=== PATIENT | male | born 1935 | race Caucasian/White ===

== ENCOUNTER → 2016-10-30 | Outpatient (REF) | payer MEDICARE ==
[2016-10-30 17:34] LABS: BLOOD UREA NITROGEN 14 MG/DL (7-18); GLOMERULAR FILTRATION RATE > 60.0 (>35)
== END ==
LOC: M LABDRAWC 16:15
PROVIDERS: ATTEND Dermatology
DX: C43.9 Malignant melanoma of skin, unspecified (principal)

== ENCOUNTER → 2017-06-08 | Outpatient (REF) | payer OTHER ==
[2017-06-08 16:26] LABS: MEAN CORPUSCULAR HGB CONC 32.9 g/dl (32.0-36.5); MEAN CORPUSCULAR VOLUME 94.2 fl (80.0-96.0); RED CELL DISTRIBUTION WIDTH 13.2 % (11.5-14.5); WHITE BLOOD COUNT 9.3 K/mm3 (4.0-10.0)
[2017-06-08 17:47] LABS: ALBUMIN 3.7 GM/DL (3.2-5.2); ALBUMIN/GLOBULIN RATIO 1.09 (1.00-1.93); ALKALINE PHOSPHATASE 95 U/L (45-117); ALT/SGPT 22 U/L (12-78); ANION GAP 9 MEQ/L (8-16); AST/SGOT 14 U/L (15-37); BILIRUBIN,TOTAL 0.5 MG/DL (0.2-1.0); BLOOD UREA NITROGEN 20 MG/DL (7-18); CALCIUM LEVEL 8.8 MG/DL (8.8-10.2); CARBON DIOXIDE LEVEL 28 MEQ/L (21-32); CHLORIDE LEVEL 104 MEQ/L (98-107); CREATININE FOR GFR 0.92 MG/DL (0.70-1.30); FREE T4 0.76 NG/DL (0.76-1.46); GLOMERULAR FILTRATION RATE > 60.0 (>35); GLUCOSE, FASTING 160 MG/DL (83-110); POTASSIUM SERUM 4.3 MEQ/L (3.5-5.1); SODIUM LEVEL 141 MEQ/L (136-145); TOTAL PROTEIN 7.1 GM/DL (6.4-8.2)
== END ==
LOC: M SFHCCLAY 13:28
PROVIDERS: ATTEND Family Medicine
DX: I25.10 Atherosclerotic heart disease of native coronary artery without angina pectoris (principal); E03.9 Hypothyroidism, unspecified
CPT/HCPCS: 80053; 84439; 84443; 85027; G0463

== ENCOUNTER 2020-12-26 01:06 | Inpatient (IN) | payer MEDICARE, OTHER ==
[~2020-12-26] VITALS: Ht 160 cm; Wt 90.3 kg
[2020-12-26] MEDS ORDERED: ONETTES6 (01:24)
[2020-12-26] MEDS ORDERED: METO50TA7 PO (01:24)
[2020-12-26] MEDS ORDERED: GLYB5TAB6 PO (01:24)
[2020-12-26] MEDS ORDERED: LANC-66 (01:24)
[2020-12-26] MEDS ORDERED: METOPROLOL 5 MG/5 ML VIAL IV ONE (01:25)
[2020-12-26] MEDS ORDERED: ASPI-1 PO (01:25)
[2020-12-26 01:30] LABS: BASO # 0.1 10^3/uL (0.0-0.2); BASO % 0.6 % (0.0-1.0); EOS # 0.2 10^3/uL (0.0-0.5); EOS % 1.9 % (0.0-3.0); HEMATOCRIT 44.6 % (42.0-52.0); HEMOGLOBIN 14.1 g/dl (13.5-17.5); LYMPH # 3.2 10^3/uL (1.5-5.0); LYMPH % 29.7 % (24.0-44.0); MEAN CORPUSCULAR HEMOGLOBIN 29.9 pg (27.0-33.0); MEAN CORPUSCULAR HGB CONC 31.6 g/dl (32.0-36.5); MEAN CORPUSCULAR VOLUME 94.5 fl (80.0-96.0); MONO % 9.4 % (2.0-8.0); NEUTROPHILS # 6.3 10^3/uL (1.5-8.5); NEUTROPHILS % 57.9 % (36.0-66.0); PLATELET COUNT, AUTOMATED 214 10^3/uL (150-450); RED BLOOD COUNT 4.72 10^6/uL (4.30-6.10); WHITE BLOOD COUNT 10.9 10^3/uL (4.0-10.0)
[2020-12-26] MEDS ORDERED: METOPROLOL 5 MG/5 ML VIAL IV STA ×3 (01:35→01:54)
[2020-12-26] MEDS ORDERED: METOPROLOL SUCC *XL* 25MG TAB (TopROL *XL*) PO ONE (01:40)
--- NOTE | 2020-12-26 01:49 | REPVR ---
PROCEDURE INFORMATION: Exam: XR Chest Exam date and time: 12/26/2020 1:29 AM Age: 85 years old Clinical indication: Other: Chest pain TECHNIQUE: Imaging protocol: XR of the chest Views: 1 view. COMPARISON: CR Chest, 1 view 02/16/2014 6:47 AM FINDINGS: Lungs: Degree of lung inflation is normal. No evidence of pulmonary edema. No focal consolidation or parenchymal lung mass. Pleural spaces: No pleural effusion or pneumothorax. Heart/Mediastinum: Cardiac silhouette appears normal. No adenopathy or hilar mass. Bones/joints: Osseous structures show no concerning abnormality. Osseous changes of chronic right rotator cuff tear are present. IMPRESSION: No acute or focal cardiopulmonary process. Electronically signed by: Didier Chu On 12/26/2020 01:48:58 AM
[2020-12-26 02:01] LABS: ALBUMIN 3.4 GM/DL (3.2-5.2); ALT/SGPT 17 U/L (12-78); BILIRUBIN,DIRECT < 0.1 MG/DL (0.0-0.2); BILIRUBIN,TOTAL 0.3 MG/DL (0.2-1.0); BLOOD UREA NITROGEN 20 MG/DL (7-18); CALCIUM LEVEL 8.2 MG/DL (8.8-10.2); CARBON DIOXIDE LEVEL 26 MEQ/L (21-32); CHLORIDE LEVEL 108 MEQ/L (98-107); CK-MB VALUE MASS 1.7 NG/ML (<3.6); CPK CREATINE PHOSPHOKINASE 67 U/L (39-308); CREATININE FOR GFR 1.11 MG/DL (0.70-1.30); FREE T4 0.84 NG/DL (0.76-1.46); GLOMERULAR FILTRATION RATE > 60.0 (>35); GLUCOSE, FASTING 118 MG/DL (70-100); INR 1.04; LIPASE 65 U/L (73-393); MB/CK RELATIVE INDEX 2.54 (< OR =4); NT-PRO BNP 1301 PG/ML (<450); POTASSIUM SERUM 3.9 MEQ/L (3.5-5.1); PROTHROMBIN TIME 13.8 SECONDS (12.5-14.3); SODIUM LEVEL 144 MEQ/L (136-145); TOTAL PROTEIN 6.5 GM/DL (6.4-8.2); TROPONIN I 0.04 NG/ML (< 0.10)
[2020-12-26 02:02] LABS: PARTIAL THROMBOPLASTIN TIME 30.6 SECONDS (24.2-38.5)
[2020-12-26 04:53] LABS: MB/CK RELATIVE INDEX 3.03 (< OR =4); TROPONIN I 0.07 NG/ML (< 0.10)
[2020-12-26] MEDS ORDERED: MORPHINE 2 MG/ML 1ML VIAL (J2270) IV PRN (06:00)
[2020-12-26] MEDS ORDERED: NITROGLYCERIN 0.3 MG SUBL TAB SL PRN (06:00)
[2020-12-26] MEDS ORDERED: ACETAMINOPHEN TAB 650MG DOSE (2X325MG) PO PRN (06:00)
--- NOTE | 2020-12-26 06:18 | HPEPDOC ---
General Date of Admission 12/26/20 Date of Service: Dec 26, 2020 Attending Physician: JARRELL BOCANEGRA MD Chief Complaint The patient is a 85-year-old male admitted with a reason for visit of Rapid Heart Rate. History of Present Illness HPI: This is a 85 y/o elderly gentleman with PMHx significant for Cardiac stent x4, HTN, hypercholesterolemia, DM2, who presents to [facility] ER with cc or epigastric discomfort and racing heartbeat. Pt is a poor historian. He states that he has not had his metoprolol (50mg PO BID) filled and missed 2 days of the medication. He states that he could feel his heart beat out of his chest and very fast. At the same time he experiences an gnawing epigastric discomfort which he states is not painful per say but "it's just there." He denies any radiation of his epigastric pain; also denies any CP, dizziness, syncope, presyncope, headaches, vision changes, fever, chills, n/v/d. Also denies any allievating or exacerbating factors. When EMS arrived at his home, his HR was in the 140s-150s, he was given Metoprolol for rate control and a 1L fluid bolus. In the ER, his initial trop was elevated and 2nd set increased, EKG did not show any acute ST elevations. 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 Stopped smoking many years ago. Rarely drinks alcohol PHYSICAL EXAM: VITAL SIGNS: See below GENERAL: elderly gentleman, resting comfortably in bed, NAD HEENT: Head is normocephalic, atraumatic. Pupils equal, round and reactive to light and accommodation. Extraocular muscles are intact. Mucosa is moist. Poor dentition of the lower teeth. Upper partial plate is not in today. In general, he has benign appearing mouth and throat. NECK: He has no thyromegaly or cervical adenopathy. HEART: Regular rate and rhythm on tele. No JVD. trace pitting edema in bilateral lower ext CHEST: Clear to auscultation in all costa. ABDOMEN: obese, hyperactive bowel, No tenderness, masses EXTREMITIES: Good distal pulses. Edema noted in the left leg. There is varicosities also of the left leg. No clubbing or cyanosis noted. IMAGING: XR chest : IMPRESSION: No acute or focal cardiopulmonary process. ASSESSEMENT AND PLAN: #Epigastric pain with radiation to substernal region #Troponemia -R/o ACS - will trend trop and EKG - will order lipid panel, TSH, ASCVD calculation - will order for a1c - nitro Sl prn + morphine Prn - will order for Urine drug screen - will order ECHO - will order CTA chest - am f/u -ASA loaded will start 81mg ASA+ metoprolol +lisinopril +atorvastain 80mg #Hypothyroidism - TSH initially very high - will order for repeat - am team to [place] for priomary vs 2ndary or tertiary hypothyroidism depending on repeat serum TSH and start meds #COPD - not in decompensation - c/w home meds #HTN - c/w metoprolol home dose #Hypercholesteremia - c/w home meds - will order lipid panel DVT ppx: Heparin Code status: Full disposition: Admit PCU tele. Trop trends Med rec needed to be done. Pharmacy has not reviewed his home meds upon morning signout. Home Medications Scheduled Aspirin (Aspirin) 325 Mg Tablet, 1 TAB PO DAILY for fever, (Reported) Metoprolol Tartrate (Metoprolol Tartrate) 50 Mg Tablet, 50 MG PO BID, (Reported) Miscellaneous Medications Blood Sugar Diagnostic ([place] Ultra Blue Test Strp) 1 Each Strip, (Reported) Glyburide (Glyburide) 5 Mg Tablet, 5 MG PO, (Reported) Allergies Coded Allergies: Penicillins (Verified Allergy, Unknown, HIVES, 12/26/20) A-FIB/CHADSVASC A-FIB History Current/History of A-Fib/PAF?: No Current PO Anticoag Therapy: No Vital Signs Vital Signs Date Time Temp Pulse Resp B/P (MAP) Pulse Ox O2 Delivery O2 Flow Rate FiO2 12/26/20 05:45 75 16 142/68 (92) 98 Room Air 12/26/20 01:16 97.7 Laboratory Data Labs 24H Laboratory Tests 2 12/26/20 01:14: Immature Granulocyte % (Auto) 0.5, Neutrophils (%) (Auto) 57.9, Lymphocytes (%) (Auto) 29.7, Monocytes (%) (Auto) 9.4H, Eosinophils (%) (Auto) 1.9, Basophils (%) (Auto) 0.6, Neutrophils # (Auto) 6.3, Lymphocytes # (Auto) 3.2, Monocytes # (Auto) 1.0H, Eosinophils # (Auto) 0.2, Basophils # (Auto) 0.1, Nucleated Red Blood Cells % (auto) 0.0, Prothrombin Time 13.8, Prothromb Time International Ratio 1.04, Activated Partial Thromboplast Time 30.6, Anion Gap 10, Glomerular Filtration Rate > 60.0, Calcium Level 8.2L, Total Bilirubin 0.3, Direct Bilirubin < 0.1, Aspartate Amino Transf (AST/SGOT) 9, Alanine Aminotransferase (ALT/SGPT) 17, Alkaline Phosphatase 96, Total Creatine Kinase 67, Creatine Kinase MB 1.7, Creatine Kinase MB Relative Index 2.54, Troponin I 0.04, WD-Nij-W-Type Natriuretic Peptide 1301H, Total Protein 6.5, Albumin 3.4, Albumin/Globulin Ratio 1.1, Lipase 65L, Thyroid Stimulating Hormone (TSH) 23.100H, Free Thyroxine 0.84 12/26/20 04:08: Total Creatine Kinase 66, Creatine Kinase MB 2.0, Creatine Kinase MB Relative Index 3.03, Troponin I 0.07# 12/26/20 05:42: CBC/BMP Laboratory Tests 12/26/20 01:14 Plan / VTE VTE Prophylaxis Ordered?: Yes GME ATTESTATION GME ATTESTATION My faculty preceptor for this patient encounter was physically present during the encounter and was fully available. All aspects of the patient interview, examination, medical decision making process, and medical care plan development were reviewed and approved by the faculty preceptor. The faculty preceptor is aware and concurs with the plan as stated in the body of this note and will attest to such by his/her cosignature. Thang Ugarte DO Dec 26, 2020 06:18
[2020-12-26 06:33] LABS: RSV AMPLIFICATION NEGATIVE (NEGATIVE)
--- NOTE | 2020-12-26 06:41 | ECGEPIP ---
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
[2020-12-26] MEDS ORDERED: ISOVUE-370 76% 100ML VIAL As Ordered ONE (06:55)
--- NOTE | 2020-12-26 08:21 | REPVR ---
PROCEDURE INFORMATION: Exam: CTA Chest With Contrast Exam date and time: 12/26/2020 7:42 AM Age: 85 years old Clinical indication: Other: Sinus tachy TECHNIQUE: Imaging protocol: Computed tomographic angiography of the chest with contrast. 3D rendering (Not supervised by radiologist): MIP and/or 3D reconstructed images were created by the technologist. Radiation optimization: All CT scans at this facility use at least one of these dose optimization techniques: automated exposure control; mA and/or kV adjustment per patient size (includes targeted exams where dose is matched to clinical indication); or iterative reconstruction. Contrast material: ISOVUE 370; Contrast volume: 75 ml; Contrast route: INTRAVENOUS (IV); COMPARISON: CR PORTABLE CHEST X-RAY 12/26/2020 1:27 AM FINDINGS: Pulmonary arteries: No pulmonary artery embolism identified. Aorta: Moderate aortic arch, branch, and descending thoracic aortic atherosclerotic calcification without ectasia. Moderate aortic valvular calcification is present. Thyroid: The bilateral thyroid lobes are unremarkable. Lungs: Unremarkable. No consolidation. No masses. Pleural spaces: Unremarkable. No pneumothorax. No pleural effusion. Heart: LAD, LCx and RCA calcified coronary atherosclerosis. Lymph nodes: Inferior right pulmonary hilar lymph node, 10.4 mm short axis. Right subcarinal/as ago esophageal recess lymph node, 9.8 mm short axis. Pancreas: Moderate pancreatic atrophy. Bones/joints: Healed lateral left 7th rib fracture. 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 Severe left, mild right glenohumeral joint primary osteoarthritis. Thoracic spine vertebral body marginal osteophytes are noted at multiple levels. Soft tissues: Unremarkable. IMPRESSION: 1. No pulmonary artery embolism identified. 2. No thoracic aortic aneurysm or dissection identified. 3. Coronary atherosclerosis. Electronically signed by: Faisal Kessler On 12/26/2020 08:21:24 AM
[2020-12-26] MEDS ORDERED: ASPIRIN 81 MG CHEW TABLET PO SCH (09:00)
[2020-12-26] MEDS ORDERED: METOPROLOL TART 25 MG TABLET PO SCH (09:00)
[2020-12-26 11:19] VITALS: BP 116/55
[2020-12-26 11:33] LABS: CK-MB VALUE MASS 2.6 NG/ML (<3.6); MB/CK RELATIVE INDEX 3.25 (< OR =4); TROPONIN I 0.08 NG/ML (< 0.10)
[2020-12-26 11:37] LABS: CHOLESTEROL RISK RATIO 5.957 (<5); THYROID STIMULATING HORMONE 8.36 uIU/ML (0.358-3.740)
[2020-12-26 11:45] VITALS: BP 150/75
[2020-12-26 11:54] LABS: HEMOGLOBIN A1c 6.2 %
[2020-12-26] MEDS ORDERED: GLUCAGON INJ 1MG VIAL SC PRN (12:10)
[2020-12-26] MEDS ORDERED: DEXTROSE 50% 50 ML SYRINGE IV PRN (12:10)
[2020-12-26] MEDS ORDERED: SLF 3 ML SYR IV PRN (12:10)
[2020-12-26] MEDS ORDERED: GLUCOSE 4GM CHEW TABLET PO PRN (12:10)
[2020-12-26] MEDS: ASPIRIN 325 MG TAB PO SCH (12:18)
[2020-12-26] MEDS: ATORVASTATIN 20 MG TAB PO SCH (12:18)
[2020-12-26] MEDS: LISINOPRIL *2.5 MG* TAB PO SCH (12:19)
[2020-12-26] MEDS: METOPROLOL TART 50 MG TAB PO SCH ×2 (12:19→20:52)
[2020-12-26] MEDS: PANTOPRAZOLE 40MG TAB (PROTONIX) PO SCH (12:20)
[2020-12-26] MEDS: HumaLOG INSULIN (NovoLOG) PER UNIT SC SCH ×2 (12:59→17:30)
[2020-12-26 14:20] VITALS: BP 110/48
[2020-12-26] MEDS: HEPARIN SOD (PORCINE) 5000UNITS/ML 1ML VIAL/SYRINGE SC SCH ×2 (14:57→21:12)
[2020-12-26] MEDS: SLF 3 ML SYR IV SCH ×2 (14:58→21:13)
[2020-12-26 15:49] LABS: FREE T4 0.87 NG/DL (0.76-1.46)
[2020-12-26 15:52] VITALS: BP 116/56
--- NOTE | 2020-12-26 18:51 | ECGEPIP ---
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
--- NOTE | 2020-12-26 19:18 | ECGEPIP ---
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
[2020-12-26 20:08] VITALS: BP 118/57
[2020-12-26] MEDS ORDERED: HumaLOG INSULIN (NovoLOG) PER UNIT SC SCH (21:00)
[2020-12-26 21:19] LABS: CK-MB VALUE MASS 2.2 NG/ML (<3.6); MB/CK RELATIVE INDEX 2.47 (< OR =4); TROPONIN I 0.06 NG/ML (< 0.10)
[2020-12-27] VITALS: BP 124/60
[2020-12-27] MEDS: HEPARIN SOD (PORCINE) 5000UNITS/ML 1ML VIAL/SYRINGE SC SCH (05:12)
[2020-12-27] MEDS: SLF 3 ML SYR IV SCH (05:12)
[2020-12-27 05:33] LABS: HEMATOCRIT 43.1 % (42.0-52.0); HEMOGLOBIN 13.6 g/dl (13.5-17.5); MEAN CORPUSCULAR HEMOGLOBIN 29.6 pg (27.0-33.0); MEAN CORPUSCULAR HGB CONC 31.6 g/dl (32.0-36.5); MEAN CORPUSCULAR VOLUME 93.7 fl (80.0-96.0); PLATELET COUNT, AUTOMATED 183 10^3/uL (150-450); WHITE BLOOD COUNT 7.8 10^3/uL (4.0-10.0)
[2020-12-27 05:54] LABS: BLOOD UREA NITROGEN 15 MG/DL (7-18); CALCIUM LEVEL 8.4 MG/DL (8.8-10.2); CARBON DIOXIDE LEVEL 27 MEQ/L (21-32); CHLORIDE LEVEL 110 MEQ/L (98-107); CREATININE FOR GFR 0.85 MG/DL (0.70-1.30); GLOMERULAR FILTRATION RATE > 60.0 (>35); GLUCOSE, FASTING 108 MG/DL (70-100); POTASSIUM SERUM 4.1 MEQ/L (3.5-5.1); SODIUM LEVEL 143 MEQ/L (136-145)
[2020-12-27] MEDS: HumaLOG INSULIN (NovoLOG) PER UNIT SC SCH (07:30)
[2020-12-27 08:00] VITALS: BP 122/75
[2020-12-27] MEDS: ASPIRIN 325 MG TAB PO SCH (08:11)
[2020-12-27] MEDS: PANTOPRAZOLE 40MG TAB (PROTONIX) PO SCH (08:11)
[2020-12-27] MEDS: LISINOPRIL *2.5 MG* TAB PO SCH (08:11)
[2020-12-27 08:12] VITALS: BP 122/75
[2020-12-27] MEDS: ATORVASTATIN 20 MG TAB PO SCH (08:12)
[2020-12-27] MEDS: METOPROLOL TART 50 MG TAB PO SCH (08:12)
[2020-12-27] MEDS ORDERED: FLUBLOK(EGG FREE)(QUAD)INFLUENZA VACC 0.5ML SYRINGE 18YRS & OLDER IM ONE (09:00)
[2020-12-27] MEDS ORDERED: METO50TA7 PO (11:13)
[2020-12-27 11:40] LABS: THYROGLOBULIN ANTIBODY < 15.0 U/ML (<60.0); THYROID PEROXIDASE ANTIBODY < 28.0 U/ML (<60.0)
--- NOTE | 2020-12-27 14:25 | ECHO ---
DATE OF PROCEDURE: 12/26/2020 Age: 86 Gender: Male Height: 155 cm Weight: 91 kg REFERRING PHYSICIAN: Dr. Ugarte. INDICATION: Chest pain, elevated troponin. MEASUREMENTS: IVS 1.0 cm LV 5.4 cm LV systolic 4.0 cm LVPW 1.0 cm LA 4.2 cm Aorta 3.2 cm RV 2.6 cm IVC 1.9 cm Mitral E wave velocity 88 Mitral A wave 55 E prime septal 3.7 E prime lateral 9.3 FINDINGS: This study is of acceptable technical quality considering patients body habitus. Underlying sinus rhythm with wide QRS complex. Left ventricle is normal size. I do not appreciate any distinct wall motion abnormalities based on limited views. Estimated EF around 60%. Right ventricle also appears normal size and systolic function. Both atria appear dilated. Aortic valve is sclerotic. It was poorly visualized and I cannot comment well on its structure. Mitral valve also exhibits degenerative abnormalities with mitral annular calcifications. Tricuspid valve appears normal. Pulmonic valve was not well seen. No pericardial effusion, but small amount of pericardial fat pad is noted. Inferior vena cava is on upper limits of normal size, but does have some collapse with inspiration. Aortic root is normal. Aortic arch and abdominal aorta were not well seen. Doppler interrogation reveals no aortic insufficiency and mild stenosis with mean gradient 14 mmHg. Mitral and tricuspid valve appear functionally competent. Mitral inflow pattern and tissue Doppler imaging of the mitral annulus reveals grade 2 diastolic dysfunction. CONCLUSIONS: 1. Study is of fair technical quality. Underlying sinus rhythm with wide QRS complex. 2. Normal LV size with grossly preserved LV systolic function based on limited views. Likely grade 2 diastolic dysfunction. 3. Aortic sclerosis with no insufficiency and mild stenosis (mean gradient 14 mmHg). 4. No additional significant valvular disease. 5. At least borderline elevated central venous pressure. 6. Unable to estimate pulmonary artery pressure. 7. Small pericardial fat pad. MTDD
--- NOTE | 2020-12-27 19:08 | DS.PDOC ---
Discharge Summary General Date of Admission Dec 26, 2020 at 10:15 Date of Discharge 12/27/2020 Discharge Summary PRIMARY CARE PHYSICIAN: [facility] ATTENDING AT TIME OF DISCHARGE: Dr. Cj Burns, DISCHARGE DIAGNOS(E)S: Tachycardia Mildly elevated troponins without EKG changes Elevated TSH without prior diagnosis of hypothyroidism COPD Hypertension Hypercholesterolemia Coronary artery disease with history of cardiac stent x4 Diabetes mellitus type 2 HPI & HOSPITAL COURSE: Patient presented to the hospital with epigastric pain that radiated to the substernal region. Apparently he had run out of his home medications, including metoprolol because his old primary care provider was no longer working at the clinic, and he is still not scheduled to see a new provider for a few more weeks. Troponins were initially mildly elevated, but trended down. No acute changes were found on EKG. He was initially found to have a TSH of 23, but then approximately 9 hours later was rechecked and found to be 8.3, and he has no pas t history of hypothyroidism. Thyroid peroxidase antibody and thyroglobulin antibodies were both ordered and found to be negative. An echocardiogram was performed, however the dictation is still not available at this time. Essentially he was started back on his home dose of metoprolol tartrate 50 mg twice a day, his rate dropped back to normal and he became asymptomatic and. He was kept in PCU on telemetry for 24 hours without any subsequent events. It appears that he is stable for discharge at this time, and sent home on his usual home medications. Refills for his metoprolol were sent in. PHYSICAL EXAMINATION ON DISCHARGE: GENERAL: Awake, alert, oriented 3. He is in no acute distress. CARDIOVASCULAR EXAMINATION: Regular rate and rhythm, with no rubs, gallops, or murmur. RESPIRATORY EXAMINATION: Clear to auscultation bilaterally with no wheezes, rales, or rhonchi. ABDOMINAL EXAMINATION: Soft, nontender, nondistended. Bowel sounds present. EXTREMITIES: No clubbing or edema noted. 2+ pulses in the radial bilaterally. DISPOSITION: Home DISCHARGE INSTRUCTIONS: Follow-up with new primary care provider within the next 1-2 weeks. Activity as tolerated. Recommended 2 g sodium restriction diet. If symptoms return, or if you experience worsening of your symptoms, please call your doctor or return to the emergency department. ITEMS THAT NEED OUTPATIENT FOLLOWUP: Establish with new PCP Recommend rechecking thyroid studies in a few weeks Follow-up on results of echocardiogram Vital Signs/I&Os Vital Signs Date Time Temp Pulse Resp B/P (MAP) Pulse Ox O2 Delivery O2 Flow Rate FiO2 12/27/20 08:12 122/75 12/27/20 08:00 98.5 62 20 96 Room Air I&O- Last 24 Hours up to 6 AM 12/27/20 06:00 Intake Total 540 ml Output Total 325 ml Balance 215 ml Laboratory Data Labs 24H Laboratory Tests 2 12/26/20 20:27: Total Creatine Kinase 89, Creatine Kinase MB 2.2, Creatine Kinase MB Relative Index 2.47, Troponin I 0.06#, Anti-Thyroglobulin Antibody < 15.0, Thyroid Peroxidase Antibodies < 28.0 12/26/20 20:48: Bedside Glucose (Misc Panel) 104 12/27/20 05:18: Nucleated Red Blood Cells % (auto) 0.0, Anion Gap 6L, Glomerular Filtration Rate > 60.0, Lactic Acid Level 1.1, Calcium Level 8.4L, Procalcitonin <0.05 12/27/20 08:10: Bedside Glucose (Misc Panel) 107 12/27/20 11:36: Lab Scanned Report Miscellaneous Lab CBC/BMP Laboratory Tests 12/27/20 05:18 FSBS Laboratory Tests Test 12/26/20 20:48 12/27/20 08:10 Range/Units Bedside Glucose (Misc Panel) 104 107 83-110 MG/DL Discharge Medications Scheduled Aspirin (Aspirin) 325 Mg Tablet, 325 MG PO DAILY, (Reported) Glyburide (Glyburide) 5 Mg Tablet, 5 MG PO DAILY, (Reported) Metoprolol Tartrate (Metoprolol Tartrate) 50 Mg Tablet, 50 MG PO BID Allergies Coded Allergies: Penicillins (Verified Allergy, Unknown, HIVES, 12/26/20) CJ BURNS DO Dec 27, 2020 19:08
== END 2020-12-27 11:47 | disposition home health service (06) | DRG 392 ==
LOC: M ED 01:06 → M ED INP 10:15 → ENRESERV 10:26 → M PCU 11:37
PROVIDERS: ADMIT Neuromusculoskeletal Medicine & OMM; ATTEND Neuromusculoskeletal Medicine & OMM
DX: R10.13 Epigastric pain (principal); R00.0 Tachycardia, unspecified; J44.9 Chronic obstructive pulmonary disease, unspecified; I10 Essential (primary) hypertension; E78.00 Pure hypercholesterolemia, unspecified; I25.10 Atherosclerotic heart disease of native coronary artery without angina pectoris; Z95.2 Presence of prosthetic heart valve; E11.9 Type 2 diabetes mellitus without complications; R94.6 Abnormal results of thyroid function studies; R74.8 Abnormal levels of other serum enzymes; Z79.82 Long term (current) use of aspirin; Z88.0 Allergy status to penicillin; M19.90 Unspecified osteoarthritis, unspecified site; G43.909 Migraine, unspecified, not intractable, without status migrainosus; Z85.828 Personal history of other malignant neoplasm of skin; Z87.891 Personal history of nicotine dependence; Z88.8 Allergy status to other drugs, medicaments and biological substances

== ENCOUNTER 2021-10-09 00:13 | Inpatient (IN) | payer MEDICARE ==
[~2021-10-09] VITALS: Ht 162.6 cm; Wt 86.9 kg
[2021-10-09] VITALS (9 sets, daily range): BP systolic 113–134; BP diastolic 62–89; O2SAT 91–95
[~2021-10-09 00:13] MED LIST: ASPI-1 PO; GLYB5TAB6 PO; LANC-66; METO50TA7 PO; ONETTES6
[2021-10-09] MEDS ORDERED: ASPI81TA26 PO (00:40)
[2021-10-09] MEDS ORDERED: AMIO200T49 PO (00:40)
[2021-10-09] MEDS ORDERED: SEMA3TAB PO (00:40)
[2021-10-09 00:57] LABS: BASO # 0.1 10^3/uL (0.0-0.2); BASO % 0.7 % (0.0-1.0); EOS # 0.2 10^3/uL (0.0-0.5); EOS % 1.3 % (0.0-3.0); HEMATOCRIT 43.7 % (42.0-52.0); HEMOGLOBIN 13.7 g/dl (13.5-17.5); LYMPH # 2.4 10^3/uL (1.5-5.0); MEAN CORPUSCULAR HEMOGLOBIN 29.6 pg (27.0-33.0); MEAN CORPUSCULAR HGB CONC 31.4 g/dl (32.0-36.5); MEAN CORPUSCULAR VOLUME 94.4 fl (80.0-96.0); MONO % 6.8 % (2.0-8.0); NEUTROPHILS # 10.3 10^3/uL (1.5-8.5); NEUTROPHILS % 73.5 % (36.0-66.0); PLATELET COUNT, AUTOMATED 264 10^3/uL (150-450); RED BLOOD COUNT 4.63 10^6/uL (4.30-6.10)
[2021-10-09] MEDS: METOPROLOL 5 MG/5 ML VIAL IV SCH ×9 (01:09→02:14)
[2021-10-09 01:26] LABS: CK-MB VALUE MASS 1.5 NG/ML (<3.6); MB/CK RELATIVE INDEX 3.12 (< OR =4)
[2021-10-09 01:48] LABS: BLOOD UREA NITROGEN 24 MG/DL (7-18); CALCIUM LEVEL 8.9 MG/DL (8.8-10.2); CARBON DIOXIDE LEVEL 26 MEQ/L (21-32); CHLORIDE LEVEL 108 MEQ/L (98-107); CREATININE FOR GFR 1.13 MG/DL (0.70-1.30); FREE T4 0.93 NG/DL (0.76-1.46); GLOMERULAR FILTRATION RATE > 60.0 (>35); GLUCOSE, FASTING 192 MG/DL (70-100); MAGNESIUM LEVEL 2.2 MG/DL (1.8-2.4); NT-PRO BNP 3765 PG/ML (<450); SODIUM LEVEL 140 MEQ/L (136-145)
[2021-10-09 02:17] LABS: CK-MB VALUE MASS 1.6 NG/ML (<3.6); MB/CK RELATIVE INDEX 3.56 (< OR =4)
[2021-10-09] MEDS ORDERED: guaiFENesin ER 600 MG TAB PO PRN (03:25)
[2021-10-09] MEDS ORDERED: LEVALBUTEROL 1.25 MG/0.5 ML CONCENTRATE NEB NEB PRN (03:25)
[2021-10-09] MEDS ORDERED: METO50TA7 PO (03:34)
[2021-10-09] MEDS ORDERED: HOME MED LIST COMPLETE! XX SCH (03:50)
[2021-10-09] MEDS ORDERED: GLUCOSE 4GM CHEW TABLET PO PRN (04:00)
[2021-10-09] MEDS ORDERED: DEXTROSE 50% 50 ML SYRINGE IV PRN (04:00)
[2021-10-09] MEDS ORDERED: GLUCAGON INJ 1MG VIAL SC PRN (04:00)
[2021-10-09] MEDS ORDERED: LEVALBUTEROL 1.25 MG/0.5 ML CONCENTRATE NEB INH PRN (04:45)
[2021-10-09] MEDS ORDERED: ENOXAPARIN 100MG/1ML SYRINGE (J1650 PER 10MG) SC ONE (05:00)
[2021-10-09] MEDS ORDERED: FUROSEMIDE 20MG/2ML VIAL (J1940) IV ONE (05:00)
[2021-10-09] MEDS: dexameTHASONE 20MG/5ML VIAL (J1100 PER 1MG) IV SCH ×2 (05:44→08:59)
[2021-10-09 06:08] LABS: ABG BASE EXCESS -4.7 (-2.0-2.0); ABG HCO3 21.4 MEQ/L (22.0-26.0); ABG O2 SATURATION 90.7 % (95.0-99.0); ABG PARTIAL PRESSURE CO2 42.9 mmHg (35.0-45.0); ABG PARTIAL PRESSURE O2 62.9 mmHg (75.0-100.0); ABG STANDARD HCO3 20.5 MEQ/L (22.0-26.0); ABG TOTAL CO2 22.7 MEQ/L (23.0-31.0); ABG pH (ARTERIAL) 7.315 UNITS (7.350-7.450)
[2021-10-09 07:08] LABS: APPEARANCE, URINE CLEAR (CLEAR); BACTERIA, URINE AUTO NEGATIVE (NEGATIVE); BILIRUBIN, URINE AUTO NEGATIVE (NEGATIVE); BLOOD, URINE BLOOD NEGATIVE (NEGATIVE); COLOR, URINE YELLOW (YELLOW); GLUCOSE, URINE (UA) AUTO NEGATIVE (NEGATIVE); KETONE, URINE AUTO NEGATIVE (NEGATIVE); LEUKOCYTE ESTERASE, URINE AUTO NEGATIVE (NEGATIVE); MUCUS, URINE SMALL (NEGATIVE); NITRITE, URINE AUTO NEGATIVE (NEGATIVE); PROTEIN, URINE AUTO NEGATIVE (NEGATIVE); RBC, URINE AUTO 1 /HPF (0-3); SPECIFIC GRAVITY URINE AUTO 1.011 (1.002-1.035); SQUAMOUS EPITHELIAL CELL UR AU 0 /HPF (0-6); UROBILINOGEN, URINE AUTO 0.2 mg/dL (0.0-2.0); WBC, URINE AUTO 0 /HPF (0-3)
[2021-10-09] MEDS: IPRATROPIUM 0.02% SOLN 0.5MG 2.5ML NEB INH SCH ×3 (07:31→19:40)
[2021-10-09] MEDS: LEVALBUTEROL 1.25 MG/0.5 ML CONCENTRATE NEB NEB SCH ×3 (07:31→19:40)
[2021-10-09] MEDS ORDERED: REMDESIVIR 200 MG in NS 250 ML IV ONE (08:00)
[2021-10-09 08:32] LABS: VENOUS BASE EXCESS -3.9 (-2.0-2.0); VENOUS HCO3 23.8 MEQ/L (23.0-27.0); VENOUS PARTIAL PRESSURE CO2 54.4 mmHg (38.0-50.0); VENOUS PARTIAL PRESSURE O2 49.1 mmHg (30.0-50.0); VENOUS PH 7.259 UNITS (7.330-7.430); VENOUS STANDARD HCO3 20.8 MEQ/L; VENOUS TOTAL CO2 25.5 MEQ/L (24.0-28.0)
[2021-10-09 08:41] LABS: BASO # 0.1 10^3/uL (0.0-0.2); BASO % 0.6 % (0.0-1.0); EOS % 0.2 % (0.0-3.0); HEMATOCRIT 44.4 % (42.0-52.0); LYMPH # 0.8 10^3/uL (1.5-5.0); LYMPH % 6.4 % (24.0-44.0); MEAN CORPUSCULAR HEMOGLOBIN 28.6 pg (27.0-33.0); MEAN CORPUSCULAR HGB CONC 29.3 g/dl (32.0-36.5); MEAN CORPUSCULAR VOLUME 97.8 fl (80.0-96.0); MONO # 0.3 10^3/uL (0.0-0.8); MONO % 2.2 % (2.0-8.0); NEUTROPHILS # 11.1 10^3/uL (1.5-8.5); NEUTROPHILS % 89.8 % (36.0-66.0); PLATELET COUNT, AUTOMATED 195 10^3/uL (150-450); RED BLOOD COUNT 4.54 10^6/uL (4.30-6.10); WHITE BLOOD COUNT 12.4 10^3/uL (4.0-10.0)
[2021-10-09 08:53] LABS: INR 1.24
[2021-10-09 08:54] LABS: PARTIAL THROMBOPLASTIN TIME 42.3 SECONDS (25.9-37.0)
[2021-10-09 08:56] LABS: D-DIMER QUANT 2055.51 ng/ml (<500)
[2021-10-09] MEDS: HumaLOG INSULIN (NovoLOG) PER UNIT SC SCH ×4 (09:00→20:42)
[2021-10-09] MEDS: AMIODARONE 200 MG TAB (PACERONE) PO SCH (09:00)
[2021-10-09] MEDS: ASPIRIN 81MG ENTERIC TABLET PO SCH (09:00)
[2021-10-09] MEDS: METOPROLOL TART 50 MG TAB PO SCH ×2 (09:00→20:49)
[2021-10-09 09:34] LABS: ALBUMIN 3.5 GM/DL (3.2-5.2); ALT/SGPT 43 U/L (12-78); BILIRUBIN,DIRECT 0.3 MG/DL (0.0-0.2); BILIRUBIN,TOTAL 0.7 MG/DL (0.2-1.0); BLOOD UREA NITROGEN 27 MG/DL (7-18); C REACTIVE PROTEIN QUANTITATIV 3.34 MG/DL (0.00-0.30); CALCIUM LEVEL 8.8 MG/DL (8.8-10.2); CARBON DIOXIDE LEVEL 25 MEQ/L (21-32); CHLORIDE LEVEL 106 MEQ/L (98-107); CHOLESTEROL LEVEL 270 MG/DL (<200); CHOLESTEROL RISK RATIO 90 (<5); CREATININE FOR GFR 1.19 MG/DL (0.70-1.30); FERRITIN 1360 NG/ML (26-388); GLOMERULAR FILTRATION RATE > 60.0 (>35); GLUCOSE, FASTING 248 MG/DL (70-100); LDH LACTATE DEHYDROGENASE 303 U/L (87-241); LDL CHOLESTEROL 244 MG/DL (<100); MAGNESIUM LEVEL 2.2 MG/DL (1.8-2.4); NON-HDL-C 267 MG/DL; NT-PRO BNP 5809 PG/ML (<450); POTASSIUM SERUM 4.7 MEQ/L (3.5-5.1); SODIUM LEVEL 139 MEQ/L (136-145); TOTAL PROTEIN 7.3 GM/DL (6.4-8.2); TRIGLYCERIDES LEVEL 113 MG/DL (<150)
[2021-10-09] MEDS ORDERED: SODIUM CHLORIDE 0.9% INJ 10 ML SYR IV ONE (10:00)
[2021-10-09 10:12] LABS: HDL CHOLESTEROL 44 MG/DL (>40)
[2021-10-09 11:27] LABS: HEMOGLOBIN A1c 6.8 %
[2021-10-09] MEDS ORDERED: METOPROLOL TART 25 MG TABLET PO ONE (16:20)
[2021-10-09] MEDS: ENOXAPARIN 100MG/1ML SYRINGE (J1650 PER 10MG) SC SCH (20:49)
[2021-10-10] VITALS (8 sets, daily range): BP systolic 110–161; BP diastolic 66–93; O2SAT 93–98
[2021-10-10] MEDS: CALCIUM CARBONATE 500 MG CHEW U/D PO PRN (00:04)
[2021-10-10] MEDS: LEVALBUTEROL 1.25 MG/0.5 ML CONCENTRATE NEB NEB SCH ×4 (01:01→20:00)
[2021-10-10] MEDS: IPRATROPIUM 0.02% SOLN 0.5MG 2.5ML NEB INH SCH ×4 (01:01→20:00)
[2021-10-10 08:37] LABS: BASO % 0.1 % (0.0-1.0); HEMATOCRIT 41.6 % (42.0-52.0); HEMOGLOBIN 12.6 g/dl (13.5-17.5); LYMPH # 1.8 10^3/uL (1.5-5.0); LYMPH % 8.6 % (24.0-44.0); MEAN CORPUSCULAR HEMOGLOBIN 28.6 pg (27.0-33.0); MEAN CORPUSCULAR HGB CONC 30.3 g/dl (32.0-36.5); MEAN CORPUSCULAR VOLUME 94.3 fl (80.0-96.0); MONO # 1.1 10^3/uL (0.0-0.8); MONO % 5.4 % (2.0-8.0); NEUTROPHILS # 17.4 10^3/uL (1.5-8.5); NEUTROPHILS % 85.2 % (36.0-66.0); PLATELET COUNT, AUTOMATED 232 10^3/uL (150-450); RED BLOOD COUNT 4.41 10^6/uL (4.30-6.10); WHITE BLOOD COUNT 20.4 10^3/uL (4.0-10.0)
[2021-10-10] MEDS: dexameTHASONE 20MG/5ML VIAL (J1100 PER 1MG) IV SCH (08:39)
[2021-10-10] MEDS: ENOXAPARIN 100MG/1ML SYRINGE (J1650 PER 10MG) SC SCH ×2 (08:39→21:36)
[2021-10-10] MEDS: HumaLOG INSULIN (NovoLOG) PER UNIT SC SCH ×4 (08:40→21:00)
[2021-10-10] MEDS: AMIODARONE 200 MG TAB (PACERONE) PO SCH (08:40)
[2021-10-10] MEDS: ASPIRIN 81MG ENTERIC TABLET PO SCH (08:40)
[2021-10-10] MEDS: METOPROLOL TART 50 MG TAB PO SCH (08:42)
[2021-10-10] MEDS ORDERED: FLUBLOK(EGG FREE)(QUAD)INFLUENZA VACC 0.5ML SYRINGE 18YRS & OLDER IM ONE (09:00)
[2021-10-10] MEDS ORDERED: PREVNAR 13 VACCINE SYRINGE IM ONE (09:00)
[2021-10-10 09:03] LABS: BLOOD UREA NITROGEN 32 MG/DL (7-18); CALCIUM LEVEL 9.2 MG/DL (8.8-10.2); CARBON DIOXIDE LEVEL 27 MEQ/L (21-32); CHLORIDE LEVEL 108 MEQ/L (98-107); CREATININE FOR GFR 1.12 MG/DL (0.70-1.30); GLOMERULAR FILTRATION RATE > 60.0 (>35); GLUCOSE, FASTING 184 MG/DL (70-100); MAGNESIUM LEVEL 2.5 MG/DL (1.8-2.4); POTASSIUM SERUM 4.8 MEQ/L (3.5-5.1); SODIUM LEVEL 142 MEQ/L (136-145)
[2021-10-10] MEDS ORDERED: METOPROLOL TART 25 MG TABLET PO ONE (10:25)
[2021-10-10] MEDS: SODIUM CHLORIDE 0.9% INJ 10 ML SYR IV SCH (11:08)
[2021-10-10] MEDS: REMDESIVIR 100 MG in NS 250 ML IV SCH (11:08)
[2021-10-10] MEDS: METOPROLOL TART 25 MG TABLET PO SCH (21:35)
[2021-10-11] VITALS (11 sets, daily range): BP systolic 116–140; BP diastolic 63–88; O2SAT 92–98
[2021-10-11] MEDS: LEVALBUTEROL 1.25 MG/0.5 ML CONCENTRATE NEB NEB SCH ×3 (01:32→19:32)
[2021-10-11] MEDS: IPRATROPIUM 0.02% SOLN 0.5MG 2.5ML NEB INH SCH ×3 (01:32→19:32)
[2021-10-11 06:03] LABS: BASO % 0.1 % (0.0-1.0); HEMATOCRIT 42.2 % (42.0-52.0); LYMPH # 1.6 10^3/uL (1.5-5.0); LYMPH % 7.2 % (24.0-44.0); MEAN CORPUSCULAR HEMOGLOBIN 29.1 pg (27.0-33.0); MEAN CORPUSCULAR HGB CONC 30.8 g/dl (32.0-36.5); MEAN CORPUSCULAR VOLUME 94.4 fl (80.0-96.0); MONO # 1.5 10^3/uL (0.0-0.8); MONO % 7.2 % (2.0-8.0); NEUTROPHILS # 18.1 10^3/uL (1.5-8.5); NEUTROPHILS % 84.5 % (36.0-66.0); PLATELET COUNT, AUTOMATED 231 10^3/uL (150-450); RED BLOOD COUNT 4.47 10^6/uL (4.30-6.10); WHITE BLOOD COUNT 21.4 10^3/uL (4.0-10.0)
[2021-10-11 06:17] LABS: INR 1.34
[2021-10-11 06:18] LABS: PARTIAL THROMBOPLASTIN TIME 45.2 SECONDS (25.9-37.0)
[2021-10-11 06:41] LABS: ALBUMIN 3.3 GM/DL (3.2-5.2); ALT/SGPT 78 U/L (12-78); BILIRUBIN,DIRECT < 0.1 MG/DL (0.0-0.2); BILIRUBIN,TOTAL 0.5 MG/DL (0.2-1.0); BLOOD UREA NITROGEN 36 MG/DL (7-18); CARBON DIOXIDE LEVEL 26 MEQ/L (21-32); CHLORIDE LEVEL 106 MEQ/L (98-107); CREATININE FOR GFR 1.15 MG/DL (0.70-1.30); FERRITIN 1676 NG/ML (26-388); GLOMERULAR FILTRATION RATE > 60.0 (>35); GLUCOSE, FASTING 199 MG/DL (70-100); LDH LACTATE DEHYDROGENASE 557 U/L (87-241); MAGNESIUM LEVEL 2.6 MG/DL (1.8-2.4); NT-PRO BNP 8653 PG/ML (<450); POTASSIUM SERUM 5.6 MEQ/L (3.5-5.1); SODIUM LEVEL 138 MEQ/L (136-145); TOTAL PROTEIN 7.5 GM/DL (6.4-8.2)
[2021-10-11] MEDS: SODIUM CHLORIDE 0.9% INJ 10 ML SYR IV SCH (08:18)
[2021-10-11] MEDS: REMDESIVIR 100 MG in NS 250 ML IV SCH (08:18)
[2021-10-11] MEDS: ASPIRIN 81MG ENTERIC TABLET PO SCH (08:19)
[2021-10-11] MEDS: AMIODARONE 200 MG TAB (PACERONE) PO SCH ×2 (08:19→20:08)
[2021-10-11] MEDS: HumaLOG INSULIN (NovoLOG) PER UNIT SC SCH ×4 (08:19→20:08)
[2021-10-11] MEDS: ENOXAPARIN 100MG/1ML SYRINGE (J1650 PER 10MG) SC SCH (08:20)
[2021-10-11] MEDS: METOPROLOL TART 25 MG TABLET PO SCH (08:20)
[2021-10-11] MEDS: dexameTHASONE 20MG/5ML VIAL (J1100 PER 1MG) IV SCH (08:20)
[2021-10-11] MEDS ORDERED: FUROSEMIDE 40MG/4ML VIAL (J1940) IV ONE (11:25)
[2021-10-11] MEDS: METOPROLOL TART 50 MG TAB PO SCH (20:07)
[2021-10-11] MEDS: APIXABAN 5 MG TAB (ELIQUIS) PO SCH (20:08)
[2021-10-12] VITALS: O2SAT 94
[2021-10-12] MEDS: LEVALBUTEROL 1.25 MG/0.5 ML CONCENTRATE NEB NEB SCH ×4 (02:00→20:24)
[2021-10-12] MEDS: IPRATROPIUM 0.02% SOLN 0.5MG 2.5ML NEB INH SCH ×4 (02:00→20:00)
[2021-10-12 04:00] VITALS: BP 131/84; O2SAT 94
[2021-10-12 06:16] LABS: BASO % 0.1 % (0.0-1.0); HEMATOCRIT 42.1 % (42.0-52.0); HEMOGLOBIN 12.9 g/dl (13.5-17.5); LYMPH # 1.2 10^3/uL (1.5-5.0); LYMPH % 6.2 % (24.0-44.0); MEAN CORPUSCULAR HEMOGLOBIN 28.9 pg (27.0-33.0); MEAN CORPUSCULAR HGB CONC 30.6 g/dl (32.0-36.5); MEAN CORPUSCULAR VOLUME 94.2 fl (80.0-96.0); MONO # 1.4 10^3/uL (0.0-0.8); MONO % 7.2 % (2.0-8.0); NEUTROPHILS # 16.5 10^3/uL (1.5-8.5); NEUTROPHILS % 85.4 % (36.0-66.0); PLATELET COUNT, AUTOMATED 216 10^3/uL (150-450); RED BLOOD COUNT 4.47 10^6/uL (4.30-6.10); WHITE BLOOD COUNT 19.3 10^3/uL (4.0-10.0)
[2021-10-12 06:42] LABS: CALCIUM LEVEL 8.9 MG/DL (8.8-10.2); CREATININE FOR GFR 1.26 MG/DL (0.70-1.30); GLOMERULAR FILTRATION RATE 57.5 (>35); MAGNESIUM LEVEL 2.6 MG/DL (1.8-2.4); POTASSIUM SERUM 4.5 MEQ/L (3.5-5.1)
[2021-10-12 08:00] VITALS: BP 130/77
[2021-10-12] MEDS: SODIUM CHLORIDE 0.9% INJ 10 ML SYR IV SCH (08:38)
[2021-10-12] MEDS: dexameTHASONE 20MG/5ML VIAL (J1100 PER 1MG) IV SCH (08:38)
[2021-10-12] MEDS: APIXABAN 5 MG TAB (ELIQUIS) PO SCH ×2 (08:38→19:42)
[2021-10-12] MEDS: REMDESIVIR 100 MG in NS 250 ML IV SCH (08:38)
[2021-10-12] MEDS: METOPROLOL TART 50 MG TAB PO SCH ×2 (08:39→19:43)
[2021-10-12] MEDS: AMIODARONE 200 MG TAB (PACERONE) PO SCH ×2 (08:39→19:42)
[2021-10-12] MEDS: ASPIRIN 81MG ENTERIC TABLET PO SCH (08:39)
[2021-10-12 12:00] VITALS: BP 97/66
[2021-10-12] MEDS ORDERED: DIGOXIN INJ 0.5 MG/2 ML AMP (J1160) IV ONE (13:00)
[2021-10-12 16:31] VITALS: BP 112/75
[2021-10-12] MEDS: DIGOXIN 0.25 MG TAB PO SCH ×2 (17:32→23:19)
[2021-10-12] MEDS: CALCIUM CARBONATE 500 MG CHEW U/D PO PRN (17:32)
[2021-10-12 20:00] VITALS: BP 128/91
[2021-10-13] VITALS: BP 135/96
[2021-10-13] MEDS: IPRATROPIUM 0.02% SOLN 0.5MG 2.5ML NEB INH SCH ×4 (02:21→22:20)
[2021-10-13] MEDS: LEVALBUTEROL 1.25 MG/0.5 ML CONCENTRATE NEB NEB SCH ×4 (02:21→22:19)
[2021-10-13 04:00] VITALS: BP 142/76
[2021-10-13] MEDS: LEVOTHYROXINE 25MCG TABLET (0.025MG) PO SCH (05:43)
[2021-10-13] MEDS: DIGOXIN 0.25 MG TAB PO SCH (05:43)
[2021-10-13 06:56] LABS: BASO % 0.1 % (0.0-1.0); HEMATOCRIT 43.5 % (42.0-52.0); HEMOGLOBIN 13.4 g/dl (13.5-17.5); LYMPH # 0.8 10^3/uL (1.5-5.0); LYMPH % 5.7 % (24.0-44.0); MEAN CORPUSCULAR HEMOGLOBIN 29.3 pg (27.0-33.0); MEAN CORPUSCULAR HGB CONC 30.8 g/dl (32.0-36.5); MONO # 1.2 10^3/uL (0.0-0.8); MONO % 8.8 % (2.0-8.0); NEUTROPHILS # 11.5 10^3/uL (1.5-8.5); NEUTROPHILS % 84.4 % (36.0-66.0); PLATELET COUNT, AUTOMATED 203 10^3/uL (150-450); RED BLOOD COUNT 4.58 10^6/uL (4.30-6.10); WHITE BLOOD COUNT 13.6 10^3/uL (4.0-10.0)
[2021-10-13 07:08] LABS: INR 1.7; PROTHROMBIN TIME 20.4 SECONDS (12.7-14.5)
[2021-10-13 07:09] LABS: PARTIAL THROMBOPLASTIN TIME 41.7 SECONDS (25.9-37.0)
[2021-10-13 07:26] LABS: ALBUMIN 3.4 GM/DL (3.2-5.2); ALT/SGPT 102 U/L (12-78); BILIRUBIN,DIRECT 0.3 MG/DL (0.0-0.2); BILIRUBIN,TOTAL 0.6 MG/DL (0.2-1.0); BLOOD UREA NITROGEN 44 MG/DL (7-18); CALCIUM LEVEL 9.1 MG/DL (8.8-10.2); CARBON DIOXIDE LEVEL 32 MEQ/L (21-32); CHLORIDE LEVEL 104 MEQ/L (98-107); FERRITIN 654 NG/ML (26-388); GLOMERULAR FILTRATION RATE > 60.0 (>35); GLUCOSE, FASTING 306 MG/DL (70-100); LDH LACTATE DEHYDROGENASE 237 U/L (87-241); MAGNESIUM LEVEL 2.7 MG/DL (1.8-2.4); NT-PRO BNP 11123 PG/ML (<450); POTASSIUM SERUM 4.8 MEQ/L (3.5-5.1); SODIUM LEVEL 140 MEQ/L (136-145); TOTAL PROTEIN 7.1 GM/DL (6.4-8.2)
[2021-10-13] MEDS ORDERED: LOPR1TAB6 PO (09:21)
[2021-10-13] MEDS ORDERED: ELIQ5TAB PO (09:21)
[2021-10-13] MEDS ORDERED: PRED10TA2 PO (09:21)
[2021-10-13] MEDS ORDERED: DIGO0.123 PO (09:21)
[2021-10-13] MEDS: AMIODARONE 200 MG TAB (PACERONE) PO SCH (11:25)
[2021-10-13] MEDS: dexameTHASONE 20MG/5ML VIAL (J1100 PER 1MG) IV SCH (11:25)
[2021-10-13] MEDS: REMDESIVIR 100 MG in NS 250 ML IV SCH (11:26)
[2021-10-13] MEDS: APIXABAN 5 MG TAB (ELIQUIS) PO SCH ×2 (11:26→22:19)
[2021-10-13] MEDS: METOPROLOL TART 50 MG TAB PO SCH ×2 (11:26→22:19)
[2021-10-13] MEDS: ASPIRIN 81MG ENTERIC TABLET PO SCH (11:26)
[2021-10-13] MEDS: SODIUM CHLORIDE 0.9% INJ 10 ML SYR IV SCH (11:27)
[2021-10-13 22:07] VITALS: BP 135/67
[2021-10-14] MEDS: LEVALBUTEROL 1.25 MG/0.5 ML CONCENTRATE NEB NEB SCH ×4 (03:44→20:31)
[2021-10-14] MEDS: IPRATROPIUM 0.02% SOLN 0.5MG 2.5ML NEB INH SCH ×4 (03:44→20:31)
[2021-10-14] MEDS: LEVOTHYROXINE 25MCG TABLET (0.025MG) PO SCH (06:35)
[2021-10-14 06:41] VITALS: BP 154/86
[2021-10-14 07:58] VITALS: BP 144/75
[2021-10-14] MEDS: predniSONE 10 MG TAB PO SCH (08:01)
[2021-10-14] MEDS: METOPROLOL TART 50 MG TAB PO SCH ×2 (08:02→19:56)
[2021-10-14] MEDS: APIXABAN 5 MG TAB (ELIQUIS) PO SCH ×2 (08:03→19:54)
[2021-10-14] MEDS: DIGOXIN 0.125 MG TAB PO SCH (08:03)
[2021-10-14] MEDS: ASPIRIN 81MG ENTERIC TABLET PO SCH (08:04)
[2021-10-14] MEDS: AMIODARONE 200 MG TAB (PACERONE) PO SCH (08:04)
[2021-10-15] MEDS: LEVALBUTEROL 1.25 MG/0.5 ML CONCENTRATE NEB NEB SCH ×4 (01:53→20:35)
[2021-10-15] MEDS: IPRATROPIUM 0.02% SOLN 0.5MG 2.5ML NEB INH SCH ×4 (01:53→20:35)
[2021-10-15] MEDS: LEVOTHYROXINE 25MCG TABLET (0.025MG) PO SCH (05:11)
[2021-10-15 08:42] LABS: INR 1.37; PROTHROMBIN TIME 17.3 SECONDS (12.7-14.5)
[2021-10-15 08:43] LABS: PARTIAL THROMBOPLASTIN TIME 28.8 SECONDS (25.9-37.0)
[2021-10-15 09:02] LABS: BILIRUBIN,DIRECT 0.2 MG/DL (0.0-0.2); BILIRUBIN,TOTAL 0.7 MG/DL (0.2-1.0); TOTAL PROTEIN 6.3 GM/DL (6.4-8.2)
[2021-10-15] MEDS: APIXABAN 5 MG TAB (ELIQUIS) PO SCH ×2 (09:08→20:18)
[2021-10-15] MEDS: ASPIRIN 81MG ENTERIC TABLET PO SCH (09:08)
[2021-10-15] MEDS: predniSONE 10 MG TAB PO SCH (09:08)
[2021-10-15] MEDS: AMIODARONE 200 MG TAB (PACERONE) PO SCH (09:08)
[2021-10-15] MEDS: METOPROLOL TART 50 MG TAB PO SCH ×2 (09:09→20:19)
[2021-10-15] MEDS: DIGOXIN 0.125 MG TAB PO SCH (09:13)
[2021-10-16] MEDS: LEVALBUTEROL 1.25 MG/0.5 ML CONCENTRATE NEB NEB SCH ×4 (01:25→20:22)
[2021-10-16] MEDS: IPRATROPIUM 0.02% SOLN 0.5MG 2.5ML NEB INH SCH ×4 (01:25→20:22)
[2021-10-16 05:00] VITALS: BP 125/74
[2021-10-16] MEDS: LEVOTHYROXINE 25MCG TABLET (0.025MG) PO SCH (05:11)
[2021-10-16] MEDS: ASPIRIN 81MG ENTERIC TABLET PO SCH (07:56)
[2021-10-16] MEDS: predniSONE 10 MG TAB PO SCH (07:56)
[2021-10-16] MEDS: APIXABAN 5 MG TAB (ELIQUIS) PO SCH ×2 (07:56→20:55)
[2021-10-16] MEDS: AMIODARONE 200 MG TAB (PACERONE) PO SCH (07:56)
[2021-10-16] MEDS: METOPROLOL TART 50 MG TAB PO SCH ×2 (07:57→20:56)
[2021-10-16] MEDS: DIGOXIN 0.125 MG TAB PO SCH (07:58)
[2021-10-16 08:00] VITALS: O2SAT 95
[2021-10-17] MEDS: LEVALBUTEROL 1.25 MG/0.5 ML CONCENTRATE NEB NEB SCH ×4 (01:51→19:33)
[2021-10-17] MEDS: IPRATROPIUM 0.02% SOLN 0.5MG 2.5ML NEB INH SCH ×4 (01:51→19:33)
[2021-10-17 04:00] VITALS: BP 164/80
[2021-10-17] MEDS: LEVOTHYROXINE 25MCG TABLET (0.025MG) PO SCH (05:58)
[2021-10-17] MEDS: APIXABAN 5 MG TAB (ELIQUIS) PO SCH ×2 (07:37→20:06)
[2021-10-17] MEDS: predniSONE 10 MG TAB PO SCH (07:38)
[2021-10-17] MEDS: ASPIRIN 81MG ENTERIC TABLET PO SCH (07:41)
[2021-10-17 07:45] VITALS: BP 134/70
[2021-10-17] MEDS: DIGOXIN 0.125 MG TAB PO SCH (07:49)
[2021-10-17] MEDS: AMIODARONE 200 MG TAB (PACERONE) PO SCH (07:50)
[2021-10-17] MEDS: METOPROLOL TART 50 MG TAB PO SCH (07:50)
[2021-10-17] MEDS: METOPROLOL TART 25 MG TABLET PO SCH (20:06)
[2021-10-18] MEDS: LEVALBUTEROL 1.25 MG/0.5 ML CONCENTRATE NEB NEB SCH ×3 (02:00→14:00)
[2021-10-18] MEDS: IPRATROPIUM 0.02% SOLN 0.5MG 2.5ML NEB INH SCH ×3 (02:00→14:00)
[2021-10-18 04:00] VITALS: BP 129/86
[2021-10-18] MEDS: LEVOTHYROXINE 25MCG TABLET (0.025MG) PO SCH (06:03)
[2021-10-18] MEDS: APIXABAN 5 MG TAB (ELIQUIS) PO SCH ×2 (07:57→20:38)
[2021-10-18] MEDS: predniSONE 10 MG TAB PO SCH (07:58)
[2021-10-18] MEDS: ASPIRIN 81MG ENTERIC TABLET PO SCH (07:58)
[2021-10-18] MEDS: AMIODARONE 200 MG TAB (PACERONE) PO SCH (07:58)
[2021-10-18] MEDS: DIGOXIN 0.125 MG TAB PO SCH (07:59)
[2021-10-18 08:00] VITALS: BP 114/78
[2021-10-18] MEDS: METOPROLOL TART 25 MG TABLET PO SCH ×2 (08:00→20:38)
[2021-10-18] MEDS ORDERED: ACETAMINOPHEN TAB 650MG DOSE (2X325MG) PO PRN (13:15)
[2021-10-18 17:52] LABS: BLOOD UREA NITROGEN 34 MG/DL (7-18); CALCIUM LEVEL 8.6 MG/DL (8.8-10.2); CARBON DIOXIDE LEVEL 33 MEQ/L (21-32); CHLORIDE LEVEL 97 MEQ/L (98-107); GLOMERULAR FILTRATION RATE > 60.0 (>35); GLUCOSE, FASTING 434 MG/DL (70-100); POTASSIUM SERUM 5.7 MEQ/L (3.5-5.1); SODIUM LEVEL 134 MEQ/L (136-145)
[2021-10-18] MEDS ORDERED: GLUCAGON INJ 1MG VIAL SC PRN (17:55)
[2021-10-18] MEDS ORDERED: GLUCOSE 4GM CHEW TABLET PO PRN (17:55)
[2021-10-18] MEDS ORDERED: FUROSEMIDE 40MG/4ML VIAL (J1940) IV ONE (17:55)
[2021-10-18] MEDS ORDERED: DEXTROSE 50% 50 ML SYRINGE IV PRN (17:55)
[2021-10-18] MEDS: HumaLOG INSULIN (NovoLOG) PER UNIT SC SCH ×2 (18:38→21:53)
[2021-10-18] MEDS ORDERED: FUROSEMIDE 40 MG TAB PO ONE (19:55)
[2021-10-18 20:34] VITALS: BP 105/66
[2021-10-18 21:00] VITALS: BP 118/60
[2021-10-19 04:00] VITALS: BP 136/90
[2021-10-19 06:15] LABS: BASO # 0.1 10^3/uL (0.0-0.2); BASO % 0.3 % (0.0-1.0); EOS # 0.1 10^3/uL (0.0-0.5); EOS % 0.5 % (0.0-3.0); HEMATOCRIT 46.3 % (42.0-52.0); HEMOGLOBIN 14.8 g/dl (13.5-17.5); LYMPH % 11.8 % (24.0-44.0); MEAN CORPUSCULAR HEMOGLOBIN 29.2 pg (27.0-33.0); MEAN CORPUSCULAR VOLUME 91.3 fl (80.0-96.0); MONO # 1.5 10^3/uL (0.0-0.8); MONO % 8.8 % (2.0-8.0); NEUTROPHILS # 12.6 10^3/uL (1.5-8.5); NEUTROPHILS % 76.3 % (36.0-66.0); PLATELET COUNT, AUTOMATED 159 10^3/uL (150-450); RED BLOOD COUNT 5.07 10^6/uL (4.30-6.10); WHITE BLOOD COUNT 16.6 10^3/uL (4.0-10.0)
[2021-10-19] MEDS: LEVOTHYROXINE 25MCG TABLET (0.025MG) PO SCH (06:40)
[2021-10-19 06:48] LABS: HEMOGLOBIN A1c 7.7 %
[2021-10-19 06:50] LABS: ALBUMIN 2.7 GM/DL (3.2-5.2); ALT/SGPT 55 U/L (12-78); BILIRUBIN,TOTAL 1.1 MG/DL (0.2-1.0); BLOOD UREA NITROGEN 28 MG/DL (7-18); CALCIUM LEVEL 8.7 MG/DL (8.8-10.2); CARBON DIOXIDE LEVEL 37 MEQ/L (21-32); CHLORIDE LEVEL 96 MEQ/L (98-107); CREATININE FOR GFR 0.84 MG/DL (0.70-1.30); GLOMERULAR FILTRATION RATE > 60.0 (>35); GLUCOSE, FASTING 122 MG/DL (70-100); MAGNESIUM LEVEL 2.5 MG/DL (1.8-2.4); POTASSIUM SERUM 4.7 MEQ/L (3.5-5.1); SODIUM LEVEL 136 MEQ/L (136-145); TOTAL PROTEIN 6.1 GM/DL (6.4-8.2)
[2021-10-19] MEDS: LEVALBUTEROL 1.25 MG/0.5 ML CONCENTRATE NEB NEB SCH ×3 (07:18→20:00)
[2021-10-19] MEDS: IPRATROPIUM 0.02% SOLN 0.5MG 2.5ML NEB INH SCH ×3 (07:18→20:00)
[2021-10-19] MEDS: APIXABAN 5 MG TAB (ELIQUIS) PO SCH ×2 (08:55→21:38)
[2021-10-19] MEDS: predniSONE 10 MG TAB PO SCH (08:56)
[2021-10-19] MEDS: FUROSEMIDE 40 MG TAB PO SCH (08:56)
[2021-10-19] MEDS: DIGOXIN 0.125 MG TAB PO SCH (08:57)
[2021-10-19] MEDS: ASPIRIN 81MG ENTERIC TABLET PO SCH (08:57)
[2021-10-19] MEDS: HumaLOG INSULIN (NovoLOG) PER UNIT SC SCH ×4 (09:00→21:38)
[2021-10-19] MEDS: METOPROLOL TART 25 MG TABLET PO SCH ×2 (09:00→21:42)
[2021-10-19] MEDS: AMIODARONE 200 MG TAB (PACERONE) PO SCH (09:01)
[2021-10-20] MEDS: LEVALBUTEROL 1.25 MG/0.5 ML CONCENTRATE NEB NEB SCH ×4 (02:00→17:16)
[2021-10-20] MEDS: IPRATROPIUM 0.02% SOLN 0.5MG 2.5ML NEB INH SCH ×4 (02:00→17:16)
[2021-10-20 04:00] VITALS: BP 129/58
[2021-10-20] MEDS: LEVOTHYROXINE 25MCG TABLET (0.025MG) PO SCH (06:43)
[2021-10-20 07:43] LABS: BASO # 0.1 10^3/uL (0.0-0.2); BASO % 0.3 % (0.0-1.0); EOS % 0.3 % (0.0-3.0); HEMATOCRIT 44.1 % (42.0-52.0); HEMOGLOBIN 14.2 g/dl (13.5-17.5); LYMPH # 2.1 10^3/uL (1.5-5.0); LYMPH % 13.3 % (24.0-44.0); MEAN CORPUSCULAR HEMOGLOBIN 29.2 pg (27.0-33.0); MEAN CORPUSCULAR HGB CONC 32.2 g/dl (32.0-36.5); MEAN CORPUSCULAR VOLUME 90.7 fl (80.0-96.0); MONO # 1.2 10^3/uL (0.0-0.8); NEUTROPHILS # 11.8 10^3/uL (1.5-8.5); PLATELET COUNT, AUTOMATED 161 10^3/uL (150-450); RED BLOOD COUNT 4.86 10^6/uL (4.30-6.10); WHITE BLOOD COUNT 15.5 10^3/uL (4.0-10.0)
[2021-10-20 08:04] LABS: ALBUMIN 2.4 GM/DL (3.2-5.2); ALT/SGPT 43 U/L (12-78); BILIRUBIN,TOTAL 0.9 MG/DL (0.2-1.0); BLOOD UREA NITROGEN 30 MG/DL (7-18); CALCIUM LEVEL 8.2 MG/DL (8.8-10.2); CARBON DIOXIDE LEVEL 38 MEQ/L (21-32); CHLORIDE LEVEL 96 MEQ/L (98-107); GLOMERULAR FILTRATION RATE > 60.0 (>35); GLUCOSE, FASTING 185 MG/DL (70-100); MAGNESIUM LEVEL 2.3 MG/DL (1.8-2.4); POTASSIUM SERUM 4.2 MEQ/L (3.5-5.1); SODIUM LEVEL 137 MEQ/L (136-145); TOTAL PROTEIN 5.5 GM/DL (6.4-8.2)
[2021-10-20] MEDS: HumaLOG INSULIN (NovoLOG) PER UNIT SC SCH ×4 (08:34→20:04)
[2021-10-20] MEDS: predniSONE 10 MG TAB PO SCH (08:34)
[2021-10-20] MEDS: DIGOXIN 0.125 MG TAB PO SCH (08:45)
[2021-10-20] MEDS: AMIODARONE 200 MG TAB (PACERONE) PO SCH (08:46)
[2021-10-20] MEDS: APIXABAN 5 MG TAB (ELIQUIS) PO SCH ×2 (08:46→20:03)
[2021-10-20] MEDS: METOPROLOL TART 25 MG TABLET PO SCH (08:50)
[2021-10-20] MEDS: FUROSEMIDE 40 MG TAB PO SCH (08:50)
[2021-10-20] MEDS: ASPIRIN 81MG ENTERIC TABLET PO SCH (08:51)
[2021-10-20] MEDS: METOPROLOL TART 50 MG TAB PO SCH (20:03)
[2021-10-21] MEDS: IPRATROPIUM 0.02% SOLN 0.5MG 2.5ML NEB INH SCH ×3 (02:00→13:32)
[2021-10-21] MEDS: LEVALBUTEROL 1.25 MG/0.5 ML CONCENTRATE NEB NEB SCH ×3 (02:00→13:32)
[2021-10-21 05:53] VITALS: BP 138/60
[2021-10-21] MEDS: LEVOTHYROXINE 25MCG TABLET (0.025MG) PO SCH (05:58)
[2021-10-21 08:56] VITALS: BP 91/52
[2021-10-21] MEDS: METOPROLOL TART 50 MG TAB PO SCH (08:56)
[2021-10-21] MEDS: FUROSEMIDE 40 MG TAB PO SCH (08:56)
[2021-10-21] MEDS: AMIODARONE 200 MG TAB (PACERONE) PO SCH (09:00)
[2021-10-21] MEDS: HumaLOG INSULIN (NovoLOG) PER UNIT SC SCH ×2 (09:00→12:17)
[2021-10-21] MEDS: predniSONE 10 MG TAB PO SCH (09:00)
[2021-10-21] MEDS: ASPIRIN 81MG ENTERIC TABLET PO SCH (09:00)
[2021-10-21] MEDS: APIXABAN 5 MG TAB (ELIQUIS) PO SCH (09:00)
[2021-10-21] MEDS ORDERED: PRED10TA2 PO (10:04)
[2021-10-21] MEDS ORDERED: INSUHUMDS SC (10:04)
[2021-10-21] MEDS ORDERED: FURO40TA2 PO (10:04)
[2021-10-21] MEDS ORDERED: LOPR1TAB6 PO (10:04)
[2021-10-21] MEDS ORDERED: LEVO25TA5 PO (10:04)
[2021-10-21] MEDS ORDERED: MUCI600T31 PO (10:04)
[2021-10-21 10:46] LABS: BASO % 0.2 % (0.0-1.0); EOS # 0.1 10^3/uL (0.0-0.5); EOS % 0.5 % (0.0-3.0); HEMATOCRIT 47.9 % (42.0-52.0); HEMOGLOBIN 14.9 g/dl (13.5-17.5); LYMPH # 2.4 10^3/uL (1.5-5.0); LYMPH % 14.3 % (24.0-44.0); MEAN CORPUSCULAR HEMOGLOBIN 28.9 pg (27.0-33.0); MEAN CORPUSCULAR HGB CONC 31.1 g/dl (32.0-36.5); MEAN CORPUSCULAR VOLUME 92.8 fl (80.0-96.0); MONO # 1.3 10^3/uL (0.0-0.8); MONO % 7.3 % (2.0-8.0); NEUTROPHILS % 76.2 % (36.0-66.0); PLATELET COUNT, AUTOMATED 159 10^3/uL (150-450); RED BLOOD COUNT 5.16 10^6/uL (4.30-6.10); WHITE BLOOD COUNT 17.1 10^3/uL (4.0-10.0)
[2021-10-21 11:21] LABS: ALBUMIN 2.6 GM/DL (3.2-5.2); ALT/SGPT 40 U/L (12-78); BLOOD UREA NITROGEN 33 MG/DL (7-18); CALCIUM LEVEL 8.5 MG/DL (8.8-10.2); CARBON DIOXIDE LEVEL 39 MEQ/L (21-32); CHLORIDE LEVEL 95 MEQ/L (98-107); CREATININE FOR GFR 1.09 MG/DL (0.70-1.30); GLOMERULAR FILTRATION RATE > 60.0 (>35); GLUCOSE, FASTING 280 MG/DL (70-100); MAGNESIUM LEVEL 2.3 MG/DL (1.8-2.4); POTASSIUM SERUM 5.1 MEQ/L (3.5-5.1); SODIUM LEVEL 137 MEQ/L (136-145); TOTAL PROTEIN 5.9 GM/DL (6.4-8.2)
[2021-10-21] MEDS ORDERED: FURO20TA2 PO (11:54)
[2021-10-21 12:08] VITALS: BP 124/84
== END 2021-10-21 13:45 | DRG 177 ==
LOC: M ED 00:13 → M ED INP 03:24 → ENRESERV 03:36 → M 4MAIN 04:19
PROVIDERS: ADMIT Family Medicine; ATTEND Internal Medicine
DX: U07.1 COVID-19 (principal); I50.33 Acute on chronic diastolic (congestive) heart failure; J44.1 Chronic obstructive pulmonary disease with (acute) exacerbation; I48.91 Unspecified atrial fibrillation; I11.0 Hypertensive heart disease with heart failure; E11.9 Type 2 diabetes mellitus without complications; E03.9 Hypothyroidism, unspecified; M54.9 Dorsalgia, unspecified; I25.10 Atherosclerotic heart disease of native coronary artery without angina pectoris; Z95.2 Presence of prosthetic heart valve; Z79.82 Long term (current) use of aspirin; Z79.899 Other long term (current) drug therapy; Z88.0 Allergy status to penicillin; Z96.641 Presence of right artificial hip joint; Z85.828 Personal history of other malignant neoplasm of skin; E78.00 Pure hypercholesterolemia, unspecified; G43.909 Migraine, unspecified, not intractable, without status migrainosus